=== PATIENT | male | born 1955 | race Caucasian/White ===

== ENCOUNTER 2018-08-05 12:18 | Emergency (ER) | payer OTHER ==
--- NOTE | 2018-08-05 14:35 | EDPHY ---
H & P Time Seen by Provider: 08/05/18 13:28 HPI/ROS: Chief complaint. Fall HPI. Patient is a 62-year-old male was hiking this morning. He had a dog on the leash. The dog pulled any tripped on a rock and fell on his face. Did not lose consciousness though was somewhat disoriented initially. Was able to hike back to the trail head. He has abrasions and bleeding to his face. Swollen nose. No dental trauma. No neck pain back pain, chest pain or abdominal pain. No injury to arms or legs. Not on blood thinners ROS 10 systems were reviewed and negative with the exception of the elements mentioned in the history of present illness Past Medical/Surgical History: Immune system issues Social History: , nonsmoker, no alcohol Smoking Status: Never smoked Physical Exam: General Appearance: Alert well-developed male mild distress vital signs stable Eyes: Pupils equal and round no pallor or injection. ENT, no hemotympanum or Rubio sign. No septal hematoma. No oral pharyngeal or dental trauma. Diffusely swollen nose Respiratory: There are no retractions, lungs are clear to auscultation. Cardiovascular: Regular rate and rhythm. Gastrointestinal: Abdomen is soft and nontender, no masses, bowel sounds normal. Neurological: Awake and alert, sensory and motor exams grossly normal. Skin: 0.5 cm abrasion to the bridge of the nose bleeding actively. Abrasion to the left side nose. Clotted blood in nose. Musculoskeletal: Neck is supple nontender. Extremities symmetrical, full range of motion. Psychiatric: Patient is oriented X 3, there is no agitation. Constitutional: Initial Vital Signs Temperature (C) 36.4 C 08/05/18 12:21 Heart Rate 67 08/05/18 12:21 Respiratory Rate 18 08/05/18 12:21 Blood Pressure 150/77 H 08/05/18 12:21 O2 Sat (%) 98 08/05/18 12:21 O2 Delivery Mode Room Air Allergies/Adverse Reactions: No Known Allergies Allergy (Unverified 08/05/18 12:21) Home Medications: Medication Instructions Recorded Cephalexin [Keflex (*)] 500 mg PO TID #12 cap 08/05/18 Hydrocodone/APAP 5/325 [Lynn 1 each PO Q4-6PRN PRN #10 tab 08/05/18 5/325 (*)] Medical Decision Making - Diagnostics Imaging Results: X-ray of the nose shows fracture Procedures: Procedure: Laceration repair. Verbal consent was obtained from the patient. The 0.5 cm laceration on the nose was anesthetized in the usual fashion. The wound was irrigated, draped and explored to its base with a gloved finger. There were no deep structures involved. No tendon injury was identified. The wound was repaired with two 6- 0 prolene sutures. The wound repair was simple. The procedure was performed by myself. ED Course/Re-evaluation: Patient remained stable. He and I discussed treatment plan including criteria for return importance of follow-up and further evaluation. He expresses understanding and agreement Differential Diagnosis: Open fracture to nose. No septal hematoma. Laceration has been sutured. Abrasions present. Recommend follow up with ENT Departure - Departure Disposition: Home, Routine, Self-Care Clinical Impression: Nasal fracture Qualifiers: Encounter type: initial encounter Fracture type: open Qualified Code(s): S02.2XXB - Fracture of nasal bones, initial encounter for open fracture Laceration of nose Qualifiers: Encounter type: initial encounter Qualified Code(s): S01.21XA - Laceration without foreign body of nose, initial encounter Condition: Good Instructions: Care For Your Stitches (ED), Nasal Fracture (ED) Additional Instructions: Ice to your nose 15-20 minutes of each hour next 24 hr ibuprofen 600 mg every 6 hr as needed for pain. May use hydrocodone in addition for pain You may shower with you stitches in Return for signs of infection Stitches out 5 days Tuesday morning call ENT for further evaluation Referrals: NONE *PRIMARY CARE P,. [Primary Care Provider] - As per Instructions Ramo Solomon MD [Medical Doctor] - 2-3 days, call for appt. Prescriptions: Cephalexin [Keflex (*)] 500 mg PO TID #12 cap Hydrocodone/APAP 5/325 [Lynn 5/325 (*)] 1 each PO Q4-6PRN PRN #10 tab PRN Reason: Pain, Moderate
[2018-08-05 15:06] VITALS: BP 128/60
== END 2018-08-05 15:06 | disposition home or self-care (01) ==
PROC: 09QKXZZ Repair Nasal Mucosa and Soft Tissue, External Approach (ICD-10-PCS; principal; 2018-08-05)
DX: S02.2XXB Fracture of nasal bones, initial encounter for open fracture (principal); W01.198A Fall on same level from slipping, tripping and stumbling with subsequent striking against other object, initial encounter; Y93.K1 Activity, walking an animal; Y92.828 Other wilderness area as the place of occurrence of the external cause; Y99.8 Other external cause status